=== PATIENT | female | born 1980 | race African-American/Black ===

== ENCOUNTER 2017-06-01 15:20 | Outpatient (CLI) | payer OTHER ==
[2017-06-01 17:46] VITALS: BP 116/68
--- NOTE | 2017-06-02 08:26 | Ultrasound Report ---
ULTRASOUND BIOPHYSICAL PROFILE: History: well being, decreased movement Technique: Transabdominal ultrasound with Doppler interrogation. 2 - breathing movements 2 - movements 2 - posture and tone 2 - Qualitative amniotic fluid volume 8 - TOTAL SCORE OF POSSIBLE 8 Heart Rate (bpm) 138
--- NOTE | 2017-06-02 08:43 | Ultrasound Report ---
OB ULTRASOUND FOLLOWUP History: Decreased movement, well being. Technique: Transabdominal ultrasound with Doppler interrogation. Gestation: Single Position: Cephalic Amniotic Fluid: Normal MARQUIS = 12.9 cm Placenta: Fundal Placental Grade: 1 Heart Rate: 142 BPM BPD: 9.8 cm = 40 w 1 d HC: 34.9 cm = 40 w 4 d AC: 34.8 cm = 38 w 5 d FL: 7.7 cm = 39 w 1 d HC/AC Ratio: 1.0 Cephalic Index: 81.1 Estimated Weight: 3708 grams Clinical age = 39 w 1 d EDC: 06/07/17 US Gest. Age = 39 w 5 d EDC: 06/03/17 Comment: There is moderate fluid in the scrotum of uncertain significance. IMPRESSION: Viable intrauterine . No acute abnormality is detected.
== END 2017-06-01 17:37 | disposition home or self-care (01) ==
LOC: TRG 15:20
PROVIDERS: ATTEND Obstetrics & Gynecology
DX: O36.8130 Decreased fetal movements, third trimester, not applicable or unspecified (principal); O47.1 False labor at or after 37 completed weeks of gestation; Z3A.39 39 weeks gestation of pregnancy
CPT/HCPCS: 76816; 76819